=== PATIENT | female | born 1995 | race Caucasian/White ===

== ENCOUNTER 2025-01-18 20:23 | Outpatient (CLI) | payer OTHER ==
[2025-01-18] MEDS: ACETAMINOPHEN TAB 500 MG TAB PO STA (21:27)
[2025-01-18 21:44] VITALS: BP 125/84; PULSE 73; RESP 16; TEMP 98.4
--- NOTE | 2025-01-19 00:27 | P.MSEPDOC ---
Presenting Problems - Arrival Data Date of Arrival on Unit: 01/18/25 Time of Arrival on Unit: 20:20 Mode of Transport: Ambulatory - Complaint OB-Reason for Admission/Chief Complaint: Headache Comment: Patient presents to triage for a headache and back pain that has been getting progressively worse over the course of 2 weeks. Patient denies feeling contractions. Medical History - Information : 3 Para: 2 Term: 2 : 0 Abortions: Spontaneous or Elective: 0 Number of Living Children: 2 - Gestational Age Gestational Age by TIFFANY (wks/days): 31 Weeks and 0 Days - History Complications: Smoker, Hx. Substance Abuse Comment: THC use Review of Systems - Review of Systems Constitutional: No problems Breast: No problems ENT: No problems Cardiovascular: No problems Respiratory: No problems Gastrointestinal: No problems Genitourinary: No problems Musculoskeletal: No problems Neurological: No problems Skin: No problems Vital Signs - Temperature Temperature: 98.4 F Temperature Source: Oral - Pulse Right Brachial Pulse Rate: 73 Pulse Assessment Method: Automatic Cuff - Respirations Respiratory Rate: 16 Oxygen Delivery Method: Room Air O2 Sat by Pulse Oximetry: 98 - Blood Pressure Right Arm Blood Pressure: 125/84 Blood Pressure Mean: 97 Blood Pressure Source: Automatic Cuff Medical Screen Scoring - Cervical Exam Membranes: Intact - Assessment - Baby A Baseline FHR: 140 Heart Rate - NICHD Category: Category I (Normal) Physician Notification - Physician Notified Physician Notified Date: 01/18/25 Physician Notified Time: 21:16 Physician: Ermelinda Beck New Order Received: Yes - Notification Comment Comment: Dr. Beck called with report on patient that presents to [facility] for hea dache and back pain lasting 2 weeks. Cat 1 heart tones, no contractions, blood pressures reviewed. Patient has not taken tylenol, 1g tylenol ordered and encouraged to orally hydrate. comfort measures to be reviewed with patient. Patient may have cervical exam if she desires. Patient to be discharged home. Maternal Triage Index - Maternal Triage Index Presenting for scheduled procedure w/no complaint: No - Stat/Priority 1 Stat Priority 1: No - Urgent/Priority 2 Urgent Priority 2: No - Prompt/Priority 3 Prompt Priority 3: No - Non-Urgent/Priority 4 Non-Urgent Priority 4: Yes Criteria Met for Priority 4: non urgent syptoms back pain ongoing for 2 weeks and headache Disposition - Disposition OB Disposition: Discharge to home Discharge Date: 01/18/25 Discharge Time: 21:31 I agree with the RN Medical Screening Exam: Yes Case reviewed; plan agreed upon as documented in EMR&OBIX.: Yes Diagnosis: RELATED CONDITIONS, UNSPECIFIED, THIRD TRIMESTER
== END 2025-01-18 21:31 ==
LOC: FBPOP 20:23
PROVIDERS: ATTEND Obstetrics & Gynecology Obstetrics
DX: O26.93 Pregnancy related conditions, unspecified, third trimester (principal); Z3A.31 31 weeks gestation of pregnancy; Z88.6 Allergy status to analgesic agent
CPT/HCPCS: 59025; G0463; 99213

== ENCOUNTER 2025-02-03 08:44 | Inpatient (IN) | payer OTHER ==
[2025-02-03] MEDS: BETAMET ACET-BETAMETH SOD PHOS 6 MG/ML MDV IM SCH (09:16)
[2025-02-03] MEDS ORDERED: CARBOPROST TROMETHAMINE 250 MCG/ML 1 ML AMP IM PRN (09:18)
[2025-02-03] MEDS ORDERED: miSOPROStoL 200 MCG TAB PO PRN (09:18)
[2025-02-03] MEDS ORDERED: METHYLERGONOVINE 0.2 MG/ML 1 ML AMP IM PRN (09:18)
[2025-02-03] MEDS ORDERED: TRANEXAMIC 1,000 MG/100ML-NACL 1,000 MG in EMPTY BAG 1 BAG IV PRN (09:18)
[2025-02-03] MEDS ORDERED: OXYTOCIN 10 UNIT/ML 1 ML VIAL IM PRN (09:18)
--- NOTE | 2025-02-03 09:22 | P.HPOB ---
History of Present Illness H&P Date: 02/03/25 Chief Complaint: IUGR, elevated UA dopplers, BPP 2/8 Ms. Alvarado is a 29 year old at 33 weeks and 2 days gestation with EDC of 03/22/2025 by 20 week who is sent from the office for BPP 2/8 today. NST in triage is minimal variability, non-reactive. The is complicated by IUGR with AC <1%ile (diagnosed at 32 weeks) and elevated umbilical artery dopplers. The patient did have syphilis this and received 3 doses of Penicillin IM once weekly for treatment. In addition, the patient was treated for a trichomonas infection. Finally, the patient is Rh negative. She is s/p rhogam at 28 weeks. Obstetric history: 2 FTVD, no complications work-up: blood type A negative, antibody screen negative, HBsAg negative, HIV negative, HCV non-reactive, gonorrhea negative, chlamydia negative, 1 hour GTT wnl. Past Medical History History of Any Multi-Drug Resistant Organisms: None Reported Smoking Status: Current every day smoker Medications and Allergies Home Medications Medication Instructions Recorded Confirmed Type Omeprazole [PriLOSEC] 10 mg PO DAILY 01/18/25 02/03/25 History Ondansetron [Zofran] 4 mg PO Q8HR PRN 01/18/25 02/03/25 History Vit No.179/Iron/Folic 1 each PO DAILY 01/18/25 02/03/25 History [ Tablet] Allergies Allergy/AdvReac Type Severity Reaction Status Date / Time aspirin Allergy Swelling Verified 02/03/25 08:58 Exam Intake and Output 02/02/25 02/03/25 02/03/25 22:59 06:59 14:59 Other: Weight 92.533 kg Focused physical exam is performed. This is a healthy-appearing in no apparent distress. Breathing is non-labored. Abdomen is gravid and non-tender. Extremities non-tender and non-edematous. heart tones are non-reactive with minimal variability. Assessment and Plan Assessment: 29 year old at 33 weeks and 2 days with EDC of 03/22/25 presenting with BPP 2/8 in the context of IUGR and elevated umbilical artery dopplers Plan: Admit, NPO, initiate protocol
[2025-02-03 09:29] LABS: Basophils # (A) 0.01 10*3/uL (0.00-0.10); Basophils % (A) 0.1 %; Eosinophils % (A) 1.5 %; HCT 36.4 % (37.2-46.3); HGB 11.9 g/dL (12.0-15.0); Lymphocytes # (A) 1.55 10*3/uL (0.90-5.00); Lymphocytes % (A) 22.9 %; MCH 28.5 pg (27.0-32.0); MCHC 32.7 g/dL (32.0-37.0); MCV 87.3 fL (80.0-97.0); Mean Platelet Volume 8.3 fL (9.5-12.2); Monocytes # (A) 0.44 10*3/uL (0.20-1.00); Monocytes % (A) 6.5 %; Neutrophils # (A) 4.63 10*3/uL (1.80-7.70); Neutrophils % (A) 68.6 %; Platelet Count 268 10*3/uL (140-440); RBC 4.17 10*6/uL (4.10-5.20); RDW 13.3 % (11.5-14.5); WBC 6.76 10*3/uL (4.50-10.00)
[2025-02-03] MEDS: LACTATED RINGERS 1,000 ML IV SCH ×2 (09:31→11:49)
[2025-02-03] MEDS: CITRIC ACID-SODIUM CITRATE 15 ML CUP PO ONE (09:31)
[2025-02-03] MEDS: ceFAZolin 2 GM in DEXTROSE 50%-WATER VIAL 50 ML IVPB ONE (09:33)
[2025-02-03] MEDS ORDERED: fentaNYL (PF) 50 MCG/ML 2 ML AMP ONE (09:40)
[2025-02-03] MEDS ORDERED: ePHEDrine 50 MG/ML 1 ML VIAL ONE (09:40)
[2025-02-03] MEDS ORDERED: MORPHINE SULFATE (PF) 0.3 MG/0.3 ML SYR ONE (09:40)
[2025-02-03] MEDS ORDERED: OXYTOCIN 10 UNIT/ML 1 ML VIAL ONE (09:40)
[2025-02-03] MEDS ORDERED: ONDANSETRON 4 MG/2 ML VIAL ONE (09:40)
[2025-02-03 09:45] LABS: Amphetamine Screen,Urine Not Detected (NotDetected); Barbiturate Screen,Urine Not Detected (NotDetected); Benzodiazepines Screen,Urine Not Detected (NotDetected); Cocaine Screen,Urine Not Detected (NotDetected); Methadone Screen, Urine Not Detected (NotDetected); Opiate Screen,Urine Not Detected (NotDetected); Oxycodone Screen, Urine Not Detected (NotDetected); Phencyclidine Screen,Urine Not Detected (NotDetected); Tricyclic Antidepressant,Urine Not Detected (NotDetected); Urn Cannabinoid Scrn Detected (NotDetected)
[2025-02-03] MEDS ORDERED: HYDROmorphone 0.5 MG/0.5 ML SYRINGE IVP PRN (10:21)
[2025-02-03] MEDS ORDERED: NALOXONE 0.4 MG/ML 1 ML VIAL IV PRN ×2 (10:21→10:34)
[2025-02-03] MEDS ORDERED: ONDANSETRON 4 MG/2 ML VIAL IVP PRN ×2 (10:21→10:34)
[2025-02-03] MEDS ORDERED: SIMETHICONE 80 MG CHEWABLE PO PRN (10:34)
[2025-02-03] MEDS ORDERED: Rhogam IMMUNE GLOBULIN 1,500 UNIT/1 ML IM ONE (10:34)
[2025-02-03] MEDS ORDERED: diphenhydrAMINE 50 MG CAP PO PRN (10:34)
[2025-02-03] MEDS ORDERED: diphenhydrAMINE 50 MG/ML 1 ML VIAL IVP PRN ×2 (10:34)
[2025-02-03] MEDS ORDERED: ZOLPIDEM 5 MG TAB PO PRN (10:34)
[2025-02-03] MEDS ORDERED: diphenhydrAMINE 25 MG CAP PO PRN (10:34)
[2025-02-03] MEDS ORDERED: METOCLOPRAMIDE 5 MG/ML 2 ML VIAL IVP PRN (10:34)
--- NOTE | 2025-02-03 10:34 | P.OP ---
Date of Procedure: 02/03/25 Preoperative Diagnosis: 1. IUP at 33 weeks 2. IUGR (<1%ile abdominal circumference) 3. Elevated umbilical artery dopplers 4. BPP 2/10 this morning 5. Minimal variability with intermittent decelerations on NST Postoperative Diagnosis: Same Procedure(s) Performed: Primary Lower Transverse Section Implants: None Anesthesia: spinal Surgeon: Jamaica Lara Supervisor Acoustical [employer]ile Carpenters #1: Deshawn Conde Estimated Blood Loss (ml): 424 Urine output (ml): 500 (clear yellow) Pathology: other (placenta) Condition: stable Disposition: floor Indications for Procedure: Ms. Alvarado is a 29 year old at 33 weeks and 2 days sent from the office for non-reassuring BPP 2/8 this morning in the context of severe IUGR and elevated UA dopplers. Upon arrival to the unit, the heart tones were non-reassuring with minimal variability and intermittent decelerations. Urgent section was recommended for maternal and well-being. The risks, benefits, and alternatives to section were discussed with the patient including risk of bleeding, infection, damage to surrounding structures including bladder/bowels/ureters, and post-operative VTE. The patient understands these risks and desires to proceed with section. Operative Findings: Viable female infant. Apgars and weight pending stabilization with the pediatric team. Description of Procedure: The patient was taken back to the operating room where spinal anesthesia was found to be adequate. Two grams of Ancef were given for infection prophylaxis. She was prepared and draped in the dorsal supine position with a leftward tilt. A Pfannenstiel skin incision was made with the scalpel. The incision was carried down to the fascia with a bovie. The fascia was incised and extended laterally with Hutchinson scissors. The superior aspect of the fascia was grasped with the Nesha clamps. The underlying rectus muscle was dissected off sharply with Hutchinson scissors. In a similar fashion, the inferior aspect of the fascia was elevated with Nesha clamps and the rectus muscle and pyramidalis were dissected off. Excellent hemostasis was achieved with the bovie. The rectus muscle was in the midline down to the level of the pubic symphysis. Pre- peritoneal fatty tissue was bluntly dissected to expose the peritoneum. The peritoneum was found to be free of adherent bowel and entered sharply with Hutchinson scissors. The peritoneal incision was extended superiorly and inferiorly to the bladder reflection with good visualization of the bladder. The bladder blade was inserted and vesicouterine peritoneum was identified. Intraabdominal survey revealed scant, clear peritoneal fluid and the thinned-out lower uterine segment. The bladder blade was repositioned to keep the bladder out of the operative field. The lower uterine segment was incised with a scalpel. The amniotic sac was ruptured with an Allis clamp and clear fluid was noted. The uterine incision was extended bluntly with lateral and upward traction. The fetus was in cephalic presentation. The head was elevated out of the pelvis with special attention paid to avoid using the uterine incision as a fulcrum. Gentle fundal pressure was applied once the head was brought into the incision. The was delivered with no difficulty. The mouth and nose were suctioned with a bulb. The cord was clamped and cut. The was handed off to the pulp mill team leader. IV oxytocin was initiated to facilitate uterine contractions. The placenta was delivered intact with manual massage of uterine fundus. The uterus was then exteriorized and the inside of the uterus was gently wiped with a lap sponge to assure complete removal of placental membranes. The uterine incision was closed with 0-Vicryl suture in a running locked fashion. A second imbricating layer was placed with 0-Vicryl. The ovaries and tubes were found to be normal. The uterus, tubes, and ovaries were then gently returned to the abdominal cavity. The abdomen was copiously suction irrigated. The uterine incision was reinspected and excellent hemostasis was noted. The fascial layer was closed with a 0-Vicryl suture. The subcutaneous tissue was reapproximated with 2-0 Plain Gut. The skin was closed with 4-0 Monocryl in a subcuticular fashion.The patient tolerated the procedure well. All the counts were correct times two. The patient was taken to the recovery room in a stable condition. A physician assistant broker was utilized for the entire procedure due to the need for tissue retraction, dissection of vital structures, prevention and management of blood loss, and reduction in overall operative and anesthesia time as is the standard of care.
[2025-02-03 11:33] VITALS: RESP 16
[2025-02-03] MEDS: KETOROLAC 15 MG/ML 1 ML VIAL IVP SCH (11:45)
[2025-02-03] MEDS: diphenhydrAMINE 50 MG/ML 1 ML VIAL IVP PRN (11:46)
[2025-02-03 11:59] LABS: ALT 14 U/L (4-34); AST 22 U/L (14-36); African American GFR (CKD) >90 (>60 ml/min/1.73 sqM); Blood Urea Nitrogen 14 mg/dL (7-17); LDH 242 U/L (120-246); Non-African American GFR(CKD) >90 (>60 ml/min/1.73 sqM); Uric Acid 4.4 mg/dL (3.7-7.4)
[2025-02-03] MEDS: LABETALOL 5 MG/ML VIAL MDV IVP STA (12:18)
[2025-02-03] MEDS: NIFEdipine XL 30 MG TAB.ER.24 PO SCH (12:40)
[2025-02-03 14:29] LABS: Appearance,Urine Clear (Clear); Bilirubin,Urine Negative (Negative); Blood,Urine Negative (Negative); Color,Urine Colorless; Glucose,Urine (UA) Negative (Negative); Ketones,Urine Negative (Negative); Leukocyte Esterase,Urine Negative (Negative); Nitrite,Urine Negative (Negative); PH, Urine 6.5 (5.0-8.0); Protein,Urine Negative (Negative); Specific Gravity,Urine 1.015 (1.001-1.035); Urobilinogen,Urine <2.0 mg/dL (<2.0)
[2025-02-03 14:40] LABS: Creatinine,Urine Random 64.5 mg/dL; Protein/Creatinine Ratio,Urine 0.264
[2025-02-03] MEDS: ACETAMINOPHEN TAB 500 MG TAB PO SCH (15:56)
[2025-02-03] MEDS: Rhogam IMMUNE GLOBULIN 1,500 UNIT/1 ML IM ONE (18:28)
[2025-02-03] MEDS: SENNOSIDES-DOCUSATE SODIUM 1 EACH TAB PO SCH (20:24)
[2025-02-03] MEDS: CALCIUM CARBONATE 500 MG CHEWABLE PO PRN (22:59)
[2025-02-04 07:05] LABS: Basophils # (A) 0.02 10*3/uL (0.00-0.10); Basophils % (A) 0.2 %; HCT 32.3 % (37.2-46.3); HGB 10.7 g/dL (12.0-15.0); Lymphocytes % (A) 10.1 %; MCH 29.3 pg (27.0-32.0); MCHC 33.1 g/dL (32.0-37.0); MCV 88.5 fL (80.0-97.0); Mean Platelet Volume 8.8 fL (9.5-12.2); Monocytes % (A) 3.1 %; Neutrophils # (A) 10.99 10*3/uL (1.80-7.70); Neutrophils % (A) 85.8 %; Platelet Count 279 10*3/uL (140-440); RBC 3.65 10*6/uL (4.10-5.20); RDW 13.3 % (11.5-14.5); WBC 12.81 10*3/uL (4.50-10.00)
--- NOTE | 2025-02-04 07:10 | P.PN ---
Progress Note - Text Progress Note Date: 02/04/25 (650) Anesthesiology Postop day 1 status post total knee arthroplasty with adductor canal catheter. Patient doing well. VAS 2 out of 10. Gross strength intact in lower extremity. Afebrile. Denies alterations in sensorium. Catheter site intact. Heart regular rate Lungs nonlabored Abdomen nondistended Assessment: Postop day 1 status post total knee arthroplasty with adductor canal catheter Plan: 1.All questions answered. Maintain catheter 2 more days with patient removal at home. Instructions to be given at discharge. 2.This note was dictated using [employer] software. Please be advised there is a potential for misspellings or errors in job change crew member.
--- NOTE | 2025-02-04 07:11 | P.PN ---
Progress Note - Text Progress Note Date: 02/04/25 (982) Anesthesia Postop day 1 Subjective: Status Post section with Duramorph. Patient seen and examined. Doing well without complaint. VAS 2. No nausea or vomiting. Mild pruritus tolerable.. Denies fever. Gross lower extremity strength intact. Without apparent anesthetic complications. Objective: Vital signs reviewed Heart: Regular Rate Lungs: Good chest excursion Abdomen: Appears nondistended Assessment: Status post section with Duramorph postop day 1 Plan: 1. Continue current care with your medical management. Anticipated end to the duration of the Duramorph around surgery time today. You may see increased pain needs around this time. 2. This note was dictated using [employer] software. Please be advised there is a potential for misspellings or errors in civil geotechnical engineer.
[2025-02-04 08:55] VITALS: PULSE 93; TEMP 98.8
[2025-02-04 08:56] VITALS: BP 137/82
--- NOTE | 2025-02-04 09:01 | P.DS ---
Providers Date of admission: 02/03/25 09:16 Expected date of discharge: 02/04/25 Attending physician: Jamaica Lara MD Primary care physician: Stated None Hospital Course: Ms. Alvarado is a 29 year old now POD#1 s/p urgent primary lower transverse section for non-reassuring status (BPP2/10, intermittent decelerations and minimal variability on NST) in the context of severe IUGR at 33 weeks and 2 days. The was promptly [facility]. The patient did develop gestational hypertension yesterday for which she received IV Labetalol 20mg and is now on Procardia XL 30mg daily. The patient is asymptomatic and normotensive this morning. Pain is well controlled, bleeding is minimal. Patient is ambulating and voiding without difficulty. She requests early discharge to join her infant at the NICU. She denies chest pain, shortness of breathing, fevers, or chills overnight. She denies pain or swelling in the legs. Postoperative restrictions are reviewed with the patient including pelvic rest for 6 weeks, no lifting heavier than 15 pounds for 6 weeks. The patient is encouraged to call the office if she experiences any heavy bleeding, foul-smelling discharge, breast complaints, or any if she has any other concerns. She will follow up in the office with in 2 weeks for postoperative exam. All questions are answered. Patient Condition at Discharge: Good Plan - Discharge Summary New Discharge Prescriptions: New Ibuprofen [Motrin] 600 mg PO Q6HR PRN #30 tab PRN Reason: Mild Pain (Scale 1 To 3) Docusate [Colace] 100 mg PO BID PRN #60 capsule PRN Reason: Constipation oxyCODONE HCL [Roxicodone] 5 mg PO Q6HR PRN 3 Days #12 tab PRN Reason: Breakthrough Pain Acetaminophen Tab [Tylenol] 650 mg PO Q6H PRN #30 tab PRN Reason: Mild Pain (Scale 1 To 3) No Action Vit No.179/Iron/Folic [ Tablet] 1 each PO DAILY Omeprazole [PriLOSEC] 10 mg PO DAILY Ondansetron [Zofran] 4 mg PO Q8HR PRN PRN Reason: Nausea Discharge Medication List Omeprazole [PriLOSEC] 10 mg PO DAILY 01/18/25 [History] Ondansetron [Zofran] 4 mg PO Q8HR PRN 01/18/25 [History] Vit No.179/Iron/Folic [ Tablet] 1 each PO DAILY 01/18/25 [History] Acetaminophen Tab [Tylenol] 650 mg PO Q6H PRN #30 tab 02/04/25 [Rx] Docusate [Colace] 100 mg PO BID PRN #60 capsule 02/04/25 [Rx] Ibuprofen [Motrin] 600 mg PO Q6HR PRN #30 tab 02/04/25 [Rx] oxyCODONE HCL [Roxicodone] 5 mg PO Q6HR PRN 3 Days #12 tab 02/04/25 [Rx] Follow up Appointment(s)/Referral(s): Jamaica Lara MD [STAFF PHYSICIAN] - 2 Weeks Activity/Diet/Wound Care/Special Instructions: Instructions 1. Do not begin any exercise program for 3 weeks. 2. Do not resume sexual relations for 6 weeks or longer if uncomfortable. 3. You may take tub baths or showers at any time. 4. You may use tampons if desired after 6 weeks. 5. Keep any areas repaired with stitches clean and dry. 6. If you are not nursing, wear a good fitting, supportive bra during the day and limit fluid intake for at least 1 week to prevent breast engorgement. 7. Call the office, , within the next week to make appointment for your 6 week checkup if it has not already been made. 8. Report any of the following occurrences to the doctor promptly: a. Heavy, excessive bleeding b. Chills, fever c. Burning or frequency of urination d. Pain or redness and breasts if nursing e. Increasing pain or swelling of vulva (stitches). In addition to the above instructions, the following additional should be followed: 1. No heavy lifting or straining (exercising) until after 6 week checkup. 2. Keep abdominal incision clean and dry: You may wear a dressing if more comfortable. 3. Make office appointment for 2 weeks after delivery date. Discharge Disposition: HOME SELF-CARE
[2025-02-04] MEDS: IBUPROFEN 800 MG TAB PO SCH (11:11)
== END 2025-02-04 12:30 | disposition home or self-care (01) | DRG 540 ==
LOC: FBPOP 08:44 → 4FBP 09:16 → 4L1N 10:41 → 4FBP 11:14
PROVIDERS: ADMIT Obstetrics & Gynecology; ATTEND Obstetrics & Gynecology
PROC: 10D00Z1 Extraction of Products of Conception, Low, Open Approach (ICD-10-PCS; principal; 2025-02-03 09:45)
DX: O36.5930 Maternal care for other known or suspected poor fetal growth, third trimester, not applicable or unspecified (principal); Z37.0 Single live birth; Z3A.33 33 weeks gestation of pregnancy; O76 Abnormality in fetal heart rate and rhythm complicating labor and delivery; Z86.19 Personal history of other infectious and parasitic diseases; O99.334 Smoking (tobacco) complicating childbirth; F17.210 Nicotine dependence, cigarettes, uncomplicated; L29.9 Pruritus, unspecified; O13.4 Gestational [pregnancy-induced] hypertension without significant proteinuria, complicating childbirth
CPT/HCPCS: 80306; 81003; 82565; 82570; 83615; 84156; 84450; 84460; 84520; 84550; 85025; 85461; 86850; 86870; 86900; 86901